=== PATIENT | male | born 1995 | race African-American/Black ===

== ENCOUNTER 2018-08-26 06:30 | Emergency (ER) | payer SELFPAY ==
[~2018-08-26] VITALS: Ht 188 cm; Wt 118.0 kg
[2018-08-26] MEDS ORDERED: ONDANSETRON HCL 4MG/2ML INJ IV ONE (07:00)
[2018-08-26] MEDS ORDERED: SODIUM CHLORIDE 0.9% 1,000 ML IV ONE (07:00)
[2018-08-26] MEDS ORDERED: LEVETIRACETAM 500MG PREMIX 100 ML IV ONE (07:00)
[2018-08-26 07:16] LABS: BASOPHILS % 0.7 % (0.0-2.0); EOSINOPHILS % 0.7 % (0.0-5.0); HEMATOCRIT. 41.3 % (42.0-52.0); HEMOGLOBIN. 13.8 g/dL (14.0-18.0); LYMPHOCYTES % 12.1 % (20.0-50.0); MEAN CORPUSCULAR HEMOGLOBIN 31.4 pg (28.0-32.0); MEAN CORPUSCULAR VOLUME 93.9 fL (80.0-94.0); MEAN PLATELET VOLUME 8.2 fl (7.4-10.4); MONOCYTES % 6.4 % (2.0-8.0); NEUTROPHILS % 80.1 % (40.0-76.0); PLATELET 279 x1000/uL (130-400); RED CELL DISTRIBUTION WIDTH 14.5 % (11.6-14.6)
[2018-08-26 07:17] LABS: CHLORIDE 104 mEq/L (98-107)
[2018-08-26 07:21] LABS: ETHANOL BLOOD < 10 mg/dL
[2018-08-26 09:47] LABS: CLARITY URINE CLEAR (CLEAR); COLOR URINE YELLOW (YELLOW); KETONES URINE NEGATIVE (NEGATIVE); LEUKOCYTE ESTERASE URINE NEGATIVE (NEGATIVE); NITRITE URINE NEGATIVE (NEGATIVE); OCCULT BLOOD URINE NEGATIVE (NEGATIVE); PROTEIN URINE NEGATIVE (NEGATIVE); SPECIFIC GRAVITY URINE 1.014 (1.005-1.030); UROBILINOGEN URINE 0.2 E.U./dL (0.2-1.0)
[2018-08-26 10:03] LABS: *BARBITURATES SCREEN URINE NEGATIVE (NEGATIVE)
[2018-08-26 10:04] LABS: *BENZODIAZEPINES SCREEN URINE NEGATIVE (NEGATIVE); *COCAINE SCREEN URINE NEGATIVE (NEGATIVE); METHADONE URINE SCREEN NEGATIVE (NEGATIVE); OPIATES URINE SCREEN NEGATIVE (NEGATIVE); PHENCYCLIDINE URINE SCREEN NEGATIVE (NEGATIVE)
[2018-08-26 10:05] LABS: *AMPHETAMINES SCREEN URINE NEGATIVE (NEGATIVE); CANNABINOID URINE SCREEN PRESUMTIVE POSITIVE (NEGATIVE)
[2018-08-27] MEDS ORDERED: LEVETIRACETAM 500MG TABLET PO ONE (19:15)
[2018-08-27] MEDS: LEVETIRACETAM 500MG TABLET PO SCH (21:07)
[2018-08-28] MEDS: LEVETIRACETAM 500MG TABLET PO SCH (09:05)
[2018-08-28 14:30] VITALS: BP 138/72
== END 2018-08-28 15:00 | disposition home or self-care (01) ==
LOC: ER 06:30
DX: G40.909 Epilepsy, unspecified, not intractable, without status epilepticus (principal); F10.10 Alcohol abuse, uncomplicated; Y90.9 Presence of alcohol in blood, level not specified; F12.90 Cannabis use, unspecified, uncomplicated; F17.210 Nicotine dependence, cigarettes, uncomplicated; Z59.0 Homelessness
CPT/HCPCS: 36415; 80053; 80305; 80320; 81003; 85025; 96374; 96375; 99283; J1953; J2405; J7030; Z7610; G0480

== ENCOUNTER 2018-09-03 11:31 | Emergency (ER) | payer SELFPAY ==
[~2018-09-03] VITALS: Ht 190.5 cm; Wt 145.0 kg
[2018-09-03 11:48] VITALS: BP 174/99
[2018-09-03] MEDS ORDERED: KEPPSOL GT (11:50)
[2018-09-03] MEDS ORDERED: METH10TA4 PO (11:50)
== END 2018-09-03 12:44 | disposition home or self-care (01) ==
LOC: ER 12:12
DX: R56.9 Unspecified convulsions (principal); F12.10 Cannabis abuse, uncomplicated; Z59.0 Homelessness; Z79.899 Other long term (current) drug therapy
CPT/HCPCS: 99283

== ENCOUNTER 2018-10-21 15:02 | Emergency (ER) | payer MEDICAID ==
[~2018-10-21] VITALS: Ht 188 cm; Wt 136.0 kg
[~2018-10-21 15:02] MED LIST: KEPPSOL GT; METH10TA4 PO
[2018-10-21 20:43] LABS: *AMPHETAMINES SCREEN URINE NEGATIVE (NEGATIVE); *BARBITURATES SCREEN URINE NEGATIVE (NEGATIVE); *BENZODIAZEPINES SCREEN URINE NEGATIVE (NEGATIVE)
[2018-10-21 20:44] LABS: *COCAINE SCREEN URINE NEGATIVE (NEGATIVE); CANNABINOID URINE SCREEN PRESUMTIVE POSITIVE (NEGATIVE); METHADONE URINE SCREEN NEGATIVE (NEGATIVE); OPIATES URINE SCREEN NEGATIVE (NEGATIVE); PHENCYCLIDINE URINE SCREEN NEGATIVE (NEGATIVE)
[2018-10-21 22:00] VITALS: BP 145/71
== END 2018-10-21 22:23 | disposition home or self-care (01) ==
LOC: ER 15:02
DX: F12.90 Cannabis use, unspecified, uncomplicated (principal); R03.0 Elevated blood-pressure reading, without diagnosis of hypertension; G40.909 Epilepsy, unspecified, not intractable, without status epilepticus
CPT/HCPCS: 80305; 82962; 99283; Z7610

== ENCOUNTER 2018-10-22 03:03 | Emergency (ER) | payer MEDICAID ==
[~2018-10-22] VITALS: Ht 188 cm; Wt 118.0 kg
[2018-10-22] MEDS ORDERED: IBUPROFEN 800MG TABLET PO ONE (07:45)
[2018-10-22 07:58] VITALS: BP 155/86
== END 2018-10-22 08:00 | disposition home or self-care (01) ==
LOC: ER 03:03
DX: G89.29 Other chronic pain (principal); M54.5 Low back pain; F14.10 Cocaine abuse, uncomplicated; F12.10 Cannabis abuse, uncomplicated; F15.10 Other stimulant abuse, uncomplicated; F17.200 Nicotine dependence, unspecified, uncomplicated; Z98.890 Other specified postprocedural states
CPT/HCPCS: 99282; Z7610

== ENCOUNTER 2018-10-23 21:34 | Emergency (ER) | payer MEDICAID ==
[~2018-10-23] VITALS: Ht 188 cm; Wt 145.0 kg
[2018-10-24 01:59] LABS: BASOPHILS % 0.5 % (0.0-2.0); HEMATOCRIT. 42.9 % (42.0-52.0); HEMOGLOBIN. 14.3 g/dL (14.0-18.0); MEAN CORPUSCULAR HEMOGLOBIN 31.1 pg (28.0-32.0); MEAN CORPUSCULAR VOLUME 93.5 fL (80.0-94.0); MEAN PLATELET VOLUME 8.4 fl (7.4-10.4); MONOCYTES % 7.6 % (2.0-8.0); NEUTROPHILS % 67.9 % (40.0-76.0); PLATELET 272 x1000/uL (130-400); RED BLOOD CELL COUNT 4.59 mill/uL (4.7-6.1); RED CELL DISTRIBUTION WIDTH 15.2 % (11.6-14.6)
[2018-10-24 02:02] LABS: CLARITY URINE CLEAR (CLEAR); COLOR URINE YELLOW (YELLOW); KETONES URINE NEGATIVE (NEGATIVE); LEUKOCYTE ESTERASE URINE NEGATIVE (NEGATIVE); NITRITE URINE NEGATIVE (NEGATIVE); OCCULT BLOOD URINE NEGATIVE (NEGATIVE); PROTEIN URINE NEGATIVE (NEGATIVE); SPECIFIC GRAVITY URINE 1.017 (1.005-1.030); UROBILINOGEN URINE 0.2 E.U./dL (0.2-1.0)
[2018-10-24 02:04] LABS: CHLORIDE 109 mEq/L (98-107)
[2018-10-24 02:18] LABS: *AMPHETAMINES SCREEN URINE NEGATIVE (NEGATIVE); *BARBITURATES SCREEN URINE NEGATIVE (NEGATIVE); *BENZODIAZEPINES SCREEN URINE NEGATIVE (NEGATIVE); *COCAINE SCREEN URINE NEGATIVE (NEGATIVE)
[2018-10-24 02:19] LABS: CANNABINOID URINE SCREEN PRESUMTIVE POSITIVE (NEGATIVE); METHADONE URINE SCREEN NEGATIVE (NEGATIVE); OPIATES URINE SCREEN NEGATIVE (NEGATIVE); PHENCYCLIDINE URINE SCREEN NEGATIVE (NEGATIVE)
[2018-10-24] MEDS ORDERED: SODIUM CHLORIDE 0.9% 500 ML IV ONE (04:44)
[2018-10-24] MEDS ORDERED: ONDANSETRON HCL 4MG/2ML INJ IV ONE (04:45)
[2018-10-24 06:50] VITALS: BP 120/73
== END 2018-10-24 06:51 | disposition home or self-care (01) ==
LOC: ER 21:34
DX: R53.1 Weakness (principal); R11.0 Nausea; F12.90 Cannabis use, unspecified, uncomplicated; F14.10 Cocaine abuse, uncomplicated; F17.210 Nicotine dependence, cigarettes, uncomplicated; Z86.19 Personal history of other infectious and parasitic diseases
CPT/HCPCS: 36415; 80053; 80305; 81003; 85025; 93005; 96374; 99284; J2405; J7030; J7040; Z7610